=== PATIENT | male | born 1980 | race Caucasian/White ===

== ENCOUNTER → 2021-06-06 | Outpatient (CLI) | payer OTHER ==
--- NOTE | 2021-06-06 14:04 | XR ---
Right hand HISTORY: Trauma and pain, sprain 3 views of the right hand Soft tissue swelling is noted at the third digit. Bone mineralization, joint spaces and alignment are maintained. No fracture or dislocation. IMPRESSION: Soft tissue swelling.
== END | disposition home or self-care (01) ==
LOC: RADXRMAIN 13:37
PROVIDERS: ATTEND Emergency Medicine
DX: M79.89 Other specified soft tissue disorders (principal)

== ENCOUNTER → 2023-05-21 | Outpatient (CLI) | payer BC ==
[2023-05-21 18:08] LABS: Basophils # (A) 0.04 X 10*3/uL (0.00-0.10); Basophils % (A) 0.6 %; Eosinophils # (A) 0.18 X 10*3/uL (0.04-0.35); Eosinophils % (A) 2.7 %; HCT 41.4 % (39.6-50.0); HGB 14.3 g/dL (13.0-17.0); Lymphocytes # (A) 2.68 X 10*3/uL (0.90-5.00); Lymphocytes % (A) 40.5 %; MCH 30.7 pg (27.0-32.0); MCHC 34.5 g/dL (32.0-37.0); MCV 88.8 FL (80.0-97.0); Mean Platelet Volume 9.5 FL (9.5-12.2); Monocytes # (A) 0.64 X 10*3/uL (0.20-1.00); Monocytes % (A) 9.7 %; NRBC Per 100 WBC 0 X 10*3/uL (0.00-0.01); Neutrophils # (A) 3.05 X 10*3/uL (1.80-7.70); Neutrophils % (A) 46.2 %; Platelet Count 234 X 10*3/uL (140-440); RBC 4.66 X 10*6/uL (4.40-5.60); RDW 12.2 % (11.5-14.5); WBC 6.61 X 10*3/uL (4.50-10.00)
[2023-05-21 18:38] LABS: ALT 24 U/L (10-49); AST 29 U/L (14-35); Albumin 4.5 g/dL (3.8-4.9); Albumin/Globulin Ratio 1.55 Ratio (1.60-3.17); Alkaline Phosphatase 109 U/L (41-126); BUN/Creat Ratio 18.08 Ratio (12.00-20.00); Blood Urea Nitrogen 21.7 mg/dL (9.0-27.0); Calcium 9.3 mg/dL (8.7-10.3); Chloride 104 mmol/L (96-109); Chol/HDL Ratio 3.17 Ratio; Globulin 2.9 g/dL (1.6-3.3); Glucose 86 mg/dL (70-110); LDL Cholesterol,Calculated 91.7 mg/dL (0.0-131.0); Potassium 4.4 mmol/L (3.5-5.5); Sodium 140 mmol/L (135-145); Total Bilirubin 0.6 mg/dL (0.3-1.2); Total Protein 7.4 g/dL (6.2-8.2)
== END | disposition home or self-care (01) ==
LOC: LABWHC1 11:48
PROVIDERS: ATTEND Family Medicine
DX: Z00.00 Encounter for general adult medical examination without abnormal findings (principal); E55.9 Vitamin D deficiency, unspecified
CPT/HCPCS: 36415; 80053; 80061; 82306; 84443; 85025

== ENCOUNTER 2023-09-15 07:19 | Day surgery (SDC) | payer BC ==
[2023-09-15] MEDS: SODIUM CHLORIDE 0.9% 500 ML 500 ML IV ONE (07:45)
[2023-09-15 07:48] VITALS: TEMP 97.9
[2023-09-15] MEDS ORDERED: fentaNYL (PF) 50 MCG/ML 2 ML AMP ONE (08:34)
[2023-09-15] MEDS: BENZOCAINE SPRAY 1 CAN TOPICAL ONE ×2 (08:55→08:56)
[2023-09-15] MEDS: fentaNYL (PF) 50 MCG/ML 2 ML AMP IVP ONE (08:57)
[2023-09-15] MEDS: MIDAZOLAM 2 MG/2 ML VIAL IVP ONE (08:57)
[2023-09-15 09:19] VITALS: RESP 16
--- NOTE | 2023-09-15 09:27 | ECHOT ---
TRANSESOPHAGEAL ECHOCARDIOGRAM INDICATION: Abnormal 2D echo that revealed aneurysmal dilatation of the interatrial septum. PROCEDURE NOTE: After obtaining informed consent, transesophageal echocardiogram was done in left lateral position using an Omniplane probe. Local and IV sedation were obtained using Xylocaine spray, 1 mg of Versed, and 50 mcg of fentanyl. The patient tolerated the procedure well without any obvious immediate complications. FINDINGS: Interatrial septum appears aneurysmally dilated with evidence of [id number] shunt suggestive of a septum secundum atrial septal defect. There is mild mitral and tricuspid regurgitation noted. Aortic valve is free of stenosis or regurgitation. Aortic root measures within normal limits. Left ventricle has normal size and systolic function. Left atrium appears mildly enlarged. Right atrium and right ventricle within normal limits . CONCLUSIONS: Aneurysmal interatrial septum with evidence of [id number] shunt suggestive of an underlying atrial septal defect. MMODL / IJN: [id number] /
[2023-09-15 12:58] VITALS: BP 118/75; PULSE 72
== END 2023-09-15 10:12 | disposition home or self-care (01) ==
LOC: CATHCVL 07:19
PROVIDERS: ATTEND Internal Medicine Cardiovascular Disease
DX: I08.1 Rheumatic disorders of both mitral and tricuspid valves (principal); Q21.10 Atrial septal defect, unspecified; Z79.899 Other long term (current) drug therapy
CPT/HCPCS: 93312; 93320; 93325; J2250; J3010

== ENCOUNTER → 2024-09-19 | Outpatient (CLI) | payer OTHER ==
--- NOTE | 2024-09-19 15:13 | XR ---
EXAMINATION TYPE: XR hand complete LT DATE OF EXAM: 09/19/2024 2:49 PM COMPARISON: None CLINICAL INDICATION: Male, 44 years old with history of S67.02XS CRUSHING INJURY OF LEFT THUMB, SEQUE LA; PHH, pain TECHNIQUE: XR hand complete LT 3 views were obtained. FINDINGS: Normal alignment of the visualized joints. No acute osseous pathology is identified. No e vidence of soft tissue swelling. No significant degeneration. IMPRESSION: No discrete fractures visualized. There remains concern consider CT [facility], , 09/19/2024 3:10 PM
== END | disposition home or self-care (01) ==
LOC: RADXRMAIN 14:34
PROVIDERS: ATTEND Emergency Medicine
DX: S67.0 Crushing injury of thumb (principal)

== ENCOUNTER → 2024-09-26 | Outpatient (CLI) | payer OTHER ==
--- NOTE | 2024-09-26 09:40 | XR ---
EXAMINATION TYPE: XR finger LT DATE OF EXAM: 09/26/2024 9:20 AM COMPARISON: 09/19/2024 CLINICAL INDICATION: Male, 44 years old with history of S67.02XD; PHH, pain TECHNIQUE: 3 views coned-down left thumb FINDINGS: There may be mild soft tissue swelling of the thumb. However, no acute fracture, subluxation, or disl ocation is seen. IMPRESSION: Possible mild soft tissue swelling of the thumb. However, no acute osseous abnormalities seen. [facility], , 09/26/2024 9:38 AM
== END | disposition home or self-care (01) ==
LOC: RADXRMAIN 09:06
PROVIDERS: ATTEND Emergency Medicine
DX: S67.02XD Crushing injury of left thumb, subsequent encounter (principal)